=== PATIENT | male | born 1970 | race African-American/Black ===

== ENCOUNTER 2020-10-12 04:09 | Emergency (ER) | payer SELFPAY ==
--- OUTSIDE RECORDS SUMMARY | 2020-10-12 04:12 | XMS REPORT | Continuity of Care Document ---
:[address] [facility] t Address [address] [place] [address] Care Team Providers Name Role Phone Asked, Pcp Primary Care Physician Unavailable Prabhjot CARSON, S Attending Clinician Problems This patient has no known problems. Allergies, Adverse Reactions, Alerts This patient has no known allergies or adverse reactions. Social History Social Habit Start Date Stop Date Quantity Comments Source Tobacco use and 2018-03-25 2018-03-25 Never used Carl Marquez ethodist exposure 00:00:00 00:00:00 Alcohol intake 2018-03-25 2018-03-25 Current drinker Kariet on Jain 00:00:00 00:00:00 of alcohol (finding) Alcohol Comment 2018-03-25 2018-03-25 social Henry Alma ethodist 00:00:00 00:00:00 [birth year] At [birth year] Carl Marquez ethodist 00:00:00 00:00:00 Smoking Status Start Date Stop Date Source Never smoker [place] Method[facility] t Medications This patient has no known medications. Procedures This patient has no known procedures. Plan of Care Planned Activity Planned Date Details Comments Source Future Scheduled 2021-01-27 INFLUENZA VACCINE Shen n Jain Test 00:00:00 [code = INFLUENZA VACCINE] Future Scheduled 1990 Hepatitis C Carl Cevallos hodist Test 00:00:00 screening (procedure) [code = 728171280] Future Scheduled 1988 COVID-19 VACCINE (1) Iván sheikh Jain Test 00:00:00 [code = COVID-19 VACCINE (1)] Encounters Start End Encounter Admission Attending Care Care Encounter Source Date/Time Date/Time Type Type Clinicians Facility Department ID 2020-09-29 2020-09-29 Emergency [facility] [id number] 03:20:00 04:38:00 Marlin Manrique [id number] [place] [id number] [place] [id number] Results This patient has no known results.
[2020-10-12] MEDS ORDERED: HYDROCODONE/APAP 5/325 MG TAB ONE (05:07)
[2020-10-12 05:55] LABS: SARS-COV-2 RT PCR POSITIVE (NEGATIVE)
--- NOTE | 2020-10-12 06:40 | EDPHYS ---
Physician Documentation [facility] Name: Kel Tobar Age: 50 yrs Sex: Male : 1970 Arrival Date: 10/12/2020 Time: 04:10 Bed 6 Private MD: ED Physician Jean-Paul Gallardo HPI: 10/12 06:35 This 50 yrs old Black Male presents to ER via Ambulatory with complaints of Fever, Sore rn Throat. 06:35 The patient reports fever, not measured (subjective). Onset: The symptoms/episode rn began/occurred yesterday. Modifying factors: there are no obvious modifying factors. Associated signs and symptoms: Pertinent positives: chills, earache. Associated signs and symptoms: Pertinent negatives: chest pain, skin rash, shortness of breath. Severity of symptoms: At their worst the symptoms were mild in the emergency department the symptoms are unchanged. The patient has not experienced similar symptoms in the past. The patient has not recently seen a physician. Historical: - Allergies: 04:12 No Known Allergies; jb4 - Home Meds: 04:12 Lisinopril Oral [Active]; amlodipine oral [Active]; jb4 - PMHx: 04:12 Hypertension; blood clots; Hernia; jb4 - PSHx: 04:12 Hernia repair; jb4 - Immunization history:: Adult Immunizations up to date. - Social history:: Smoking status: Patient denies any tobacco usage or history of. Patient uses alcohol, occasionally. Patient/guardian denies using street drugs. - Family history:: not pertinent. - Hospitalizations: : No recent hospitalization is reported. ROS: 06:35 Constitutional: + fever and chills Eyes: Negative for injury, pain, redness, and rn lvn, Neck: Negative for injury, pain, and swelling, Cardiovascular: Negative for chest pain, palpitations, and edema, Respiratory: Negative for shortness of breath, wheezing, and pleuritic chest pain, Abdomen/GI: Negative for abdominal pain, nausea, vomiting, diarrhea, and constipation, MS/Extremity: Negative for injury and deformity, Skin: Negative for injury, rash, and discoloration, Neuro: Negative for headache, weakness, numbness, tingling, and seizure. Exam: 06:35 Constitutional: This is a well developed, well nourished patient who is awake, alert, rn and in no acute distress. Head/Face: Normocephalic, atraumatic. ENT: Mild pharyngeal erythema, no stridor, no swelling Neck: Trachea midline, no thyromegaly or masses palpated, and no cervical lymphadenopathy. Supple, full range of motion without nuchal rigidity, or vertebral point tenderness. No Meningismus. Cardiovascular: Regular rate and rhythm. No pulse deficits. Respiratory: Speaking full sentences, on phone. No increased work of breathing, no retractions or nasal flaring. Abdomen/GI: Soft, non-tender Skin: Warm, dry MS/ Extremity: Pulses equal, no cyanosis. Neurovascular intact. Full, normal range of motion. Equal circumference. Neuro: Awake and alert, GCS 15 Vital Signs: 04:12 BP 187 / 98; Pulse 97; Pulse Ox 99% on R/A; Weight 108.86 kg (R); Height 6 ft. 0 in. jb4 (182.88 cm); Pain 6/10; 04:21 Resp 18; Temp 98.1; mg2 05:00 BP 175 / 95; Pulse 90; Resp 18; Pulse Ox 98% on R/A; mg2 05:00 BP 151 / 64; Pulse 95; Resp 18; Pulse Ox 96% on R/A; mg2 06:30 BP 154 / 88; Pulse 93; Resp 16; Pulse Ox 98% on R/A; jb4 04:12 Body Mass Index 32.55 (108.86 kg, 182.88 cm) jb4 MDM: 04:19 Patient medically screened. rn 06:35 Differential diagnosis: viral Infection, bacterial infection, URI. Data reviewed: vital rn signs, nurses notes, lab test result(s), and as a result, I will discharge patient. Counseling: I had a detailed discussion with the patient and/or guardian regarding: the historical points, exam findings, and any diagnostic results supporting the discharge/admit diagnosis, the need for outpatient follow up, to return to the emergency department if symptoms worsen or persist or if there are any questions or concerns that arise at home. Response to treatment: the patient's symptoms have mildly improved after treatment, and as a result, I will discharge patient. Special discussion: I discussed with the patient/guardian in detail that at this point there is no indication for admission to the hospital. It is understood, however, that if the symptoms persist or worsen the patient needs to return immediately for re-evaluation. 10/12 04:32 Order name: Strep rn 10/12 04:32 Order name: Flu rn 10/12 04:32 Order name: COVID-19 : Document "Date of Symptom Onset" if Symptomatic. rn 10/12 04:59 Order name: CORONAVIRUS EDMS 10/12 04:59 Order name: Influenza Screen (A EDMS 10/12 05:32 Order name: Group A Streptococcus Rapid Sc; Complete Time: 06:00 EDMS 10/12 05:55 Order name: COVID-19/FLU A+B; Complete Time: 06:00 EDMS Administered Medications: 04:52 Drug: [place] (HYDROcodone-acetaminophen) 5 mg-325 mg 1 tabs Route: PO; jb4 06:22 Follow up: Response: No adverse reaction mg2 Disposition: 10/12/20 06:39 Discharged to Home. Impression: Fever, unspecified, Coronavirus infection, unspecified. - Condition is Stable. - Discharge Instructions: Viral Respiratory Infection, Qmat-Ak-Meos, COVID-19. - Prescriptions for Zithromax Z- Rich 250 mg Oral Tablet - take 1 tablet by ORAL route as directed for 5 days Day 1 - take two (2) tablets one time. Day 2, 3, 4 , 5 take one (1) tablet once daily.; 6 tablet. Prednisone 20 mg Oral Tablet - take 1 tablet by ORAL route as directed for 14 days Take 2 tablets by mouth daily for 7 days, followed by 1 tablet by mouth daily for 7 days, total of 14 days.; 21 tablet. - Medication Reconciliation Form, Thank You Letter, Antibiotic Education, Prescription Opioid Use, Work release form form. - Follow up: Private Physician; When: As needed; Reason: Recheck today's complaints, Re-evaluation by your physician. - Problem is new. - Symptoms have improved. Signatures: Dispatcher [employer] EDWY Jean-Paul Gallardo MD MD rn Bryson, James, RN RN jb4 Corby Hauser RN mg2 Corrections: (The following items were deleted from the chart) 06:44 06:39 10/12/2020 06:39 Discharged to Home. Impression: Fever, unspecified; Coronavirus jb4 infection, unspecified. Condition is Stable. Forms are Work release form, Medication Reconciliation Form, Thank You Letter, Antibiotic Education, Prescription Opioid Use. Follow up: Private Physician; When: As needed; Reason: Recheck today's complaints, Re-evaluation by your physician. Problem is new. Symptoms have improved. rn
--- NOTE | 2020-10-12 06:40 | ER ---
Nurse's Notes [facility] Name: Kel Tobar Age: 50 yrs Sex: Male : 1970 Arrival Date: 10/12/2020 Time: 04:10 Bed 6 Private MD: Diagnosis: Fever, unspecified;Coronavirus infection, unspecified Presentation: 10/12 04:12 Chief complaint: Patient states: I am just feeling bad. I had an ear infection 2 weeks jb4 ago that I was on antibiotics for. Yesterday I was coughing up mucus and am having a soar throat. 04:12 Coronavirus screen: Client denies travel out of the [place] in the last 14 days. jb4 congestion, cough unrelated to allergies, fever, Client presents with at least one sign or symptom that may indicate coronavirus-19. Standard/surgical mask placed on the client. Ebola Screen: No symptoms or risks identified at this time. Initial Sepsis Screen: Does the patient meet any 2 criteria? No. Patient's initial sepsis screen is negative. Does the patient have a suspected source of infection? No. Patient's initial sepsis screen is negative. Risk Assessment: Do you want to hurt yourself or someone else? Patient reports no desire to harm self or others. Onset of symptoms was October 11, 2020. Transition of care: patient was not received from another setting of care. 04:12 Method Of Arrival: Ambulatory jb4 04:12 Acuity: CHRISTINA 4 jb4 Historical: - Allergies: 04:12 No Known Allergies; jb4 - Home Meds: 04:12 Lisinopril Oral [Active]; amlodipine oral [Active]; jb4 - PMHx: 04:12 Hypertension; blood clots; Hernia; jb4 - PSHx: 04:12 Hernia repair; jb4 - Immunization history:: Adult Immunizations up to date. - Social history:: Smoking status: Patient denies any tobacco usage or history of. Patient uses alcohol, occasionally. Patient/guardian denies using street drugs. - Family history:: not pertinent. - Hospitalizations: : No recent hospitalization is reported. Screenin:12 Abuse screen: Denies threats or abuse. Nutritional screening: No deficits noted. jb4 Tuberculosis screening: No symptoms or risk factors identified. Fall Risk None identified. Assessment: 04:12 General: Appears in no apparent distress. uncomfortable, Behavior is calm, cooperative, jb4 appropriate for age. Pain: Complains of pain in throat Pain does not radiate. Pain currently is 6 out of 10 on a pain scale. Quality of pain is described as burning, aching, Pain began 1 day ago. Neuro: Level of Consciousness is awake, alert, obeys commands, Oriented to person, place, time, situation. Cardiovascular: Patient's skin is warm and dry. Respiratory: Airway is patent Respiratory effort is even, unlabored, Respiratory pattern is regular, symmetrical. GI: Reports diarrhea. : No signs and/or symptoms were reported regarding the genitourinary system. EENT: Throat is clear is reddened with gag reflex present. Derm: Skin is intact, Skin is dry, Skin is normal, Skin temperature is warm. Musculoskeletal: Circulation, motion, and sensation intact. Range of motion: intact in all extremities. 05:25 Reassessment: PT is resting in bed with eyes closed, respirations are even and jb4 unlabored with no s/s of pain or distress noted. 06:30 Reassessment: Patient appears in no apparent distress at this time. Patient and/or jb4 family updated on plan of care and expected duration. Pain level reassessed. Patient is alert, oriented x 3, equal unlabored respirations, skin warm/dry/pink. Pt informed of Covid-19 (+) result. Vital Signs: 04:12 BP 187 / 98; Pulse 97; Pulse Ox 99% on R/A; Weight 108.86 kg (R); Height 6 ft. 0 in. jb4 (182.88 cm); Pain 6/10; 04:21 Resp 18; Temp 98.1; mg2 05:00 BP 175 / 95; Pulse 90; Resp 18; Pulse Ox 98% on R/A; mg2 05:00 BP 151 / 64; Pulse 95; Resp 18; Pulse Ox 96% on R/A; mg2 06:30 BP 154 / 88; Pulse 93; Resp 16; Pulse Ox 98% on R/A; jb4 04:12 Body Mass Index 32.55 (108.86 kg, 182.88 cm) jb4 ED Course: 04:10 Patient arrived in ED. cl3 04:12 Britton Jin, RN is Primary Nurse. jb4 04:12 Patient has correct armband on for positive identification. Bed in low position. Call jb4 light in reach. Side rails up X 1. Pulse ox on. NIBP on. 04:19 Jean-Paul Gallardo MD is Attending Physician. rn 04:36 Triage completed. jb4 04:53 Arm band placed on right wrist. jb4 05:50 Influenza Screen (A Sent. jb4 05:50 CORONAVIRUS Sent. jb4 05:50 Flu Sent. jb4 05:50 Strep Sent. jb4 06:23 No provider procedures requiring assistance completed. Patient did not have IV access mg2 during this emergency room visit. Administered Medications: 04:52 Drug: [place] (HYDROcodone-acetaminophen) 5 mg-325 mg 1 tabs Route: PO; jb4 06:22 Follow up: Response: No adverse reaction mg2 Outcome: 06:39 Discharge ordered by MD. rn 06:41 Discharged to home ambulatory. jb4 06:41 Condition: stable 06:41 Discharge instructions given to patient, Instructed on discharge instructions, follow up and referral plans. medication usage, Demonstrated understanding of instructions, follow-up care, medications, Prescriptions given X 2. 06:44 Patient left the ED. jb4 Signatures: Jean-Paul Gallardo MD MD rn Bryson, James RN RN jb4 Corby Hauser RN RN mg2 Corrie Iverson cl3 Corrections: (The following items were deleted from the chart) 06:28 06:23 BP 175 / 95; Pulse 90bpm; Resp 18bpm; Pulse Ox 98% RA; mg2 mg2 06:43 06:41 Discharge instructions given to patient, Instructed on discharge instructions, jb4 follow up and referral plans. Demonstrated understanding of instructions, follow-up care, jb4
[2020-10-12 06:49] VITALS: TEMP 98.1
[2020-10-12 06:52] VITALS: BP 154/88; O2SAT 98
== END 2020-10-12 06:44 | disposition home or self-care (01) ==
LOC: ER 04:09
DX: U07.1 COVID-19 (principal); I10 Essential (primary) hypertension
CPT/HCPCS: 0240U; 87070; 87081; 99284

== ENCOUNTER 2020-10-19 16:17 | Inpatient (IN) | payer SELFPAY ==
--- OUTSIDE RECORDS SUMMARY | 2020-10-19 16:20 | XMS REPORT | Continuity of Care Document ---
:1970 Author Organization [facility] t Address [address] [place] [address] Care Team Providers Name Role Phone Asked, Pcp Primary Care Physician Unavailable Prabhjot CARSON S Attending Clinician Problems This patient has no known problems. Allergies, Adverse Reactions, Alerts This patient has no known allergies or adverse reactions. Social History Social Habit Start Date Stop Date Quantity Comments Source Tobacco use and 2018-03-25 2018-03-25 Never used Carl Marquez ethodist exposure 00:00:00 00:00:00 Alcohol intake 2018-03-25 2018-03-25 Current drinker Irene on Yarsanism 00:00:00 00:00:00 of alcohol (finding) Alcohol Comment 2018-03-25 2018-03-25 social [place] Alma ethodist 00:00:00 00:00:00 Sex Ass[birth year] At [birth year] [place] M ethodist 00:00:00 00:00:00 Smoking Status Start Date Stop Date Source Never smoker [place] Methodis t Medications This patient has no known medications. Procedures This patient has no known procedures. Plan of Care Planned Activity Planned Date Details Comments Source Future Scheduled 2021-01-27 INFLUENZA VACCINE Shen vogt Yarsanism Test 00:00:00 [code = INFLUENZA VACCINE] Future Scheduled 1990 Hepatitis C Carl Cevallos hodist Test 00:00:00 screening (procedure) [code = 068922985] Future Scheduled 1988 COVID-19 VACCINE (1) Iván kori Yarsanism Test 00:00:00 [code = COVID-19 VACCINE (1)] Encounters Start End Encounter Admission Attending Care Care Encounter Source Date/Time Date/Time Type Type Clinicians Facility Department ID 2020-09-29 2020-09-29 Emergency [facility] [id number] 03:20:00 04:38:00 Marlin Manrique [id number] [place] [id number] [place] [address] [id number] Results This patient has no known results.
[2020-10-19 18:34] LABS: Absolute Lymphocytes (CBC) 0.5 K/uL (0.7-4.9); Basophils % 0.7 % (0-1.3); Hematocrit 38.8 % (39.6-49.0); MPV 8.9 fL (7.6-11.3); RBC Red Blood Cell Count 4.34 M/uL (4.33-5.43)
[2020-10-19 18:41] LABS: Protime INR 1.16
[2020-10-19] MEDS ORDERED: LEVALBUTEROL 1.25 MG/3 ML NEB ONE (18:47)
[2020-10-19] MEDS ORDERED: dexAMETHasone 10 MG/ML VIAL ONE (18:47)
[2020-10-19] MEDS ORDERED: MAGNESIUM SULFATE 1 gm IVPB 1 GM/100 ML BAG IV ONE (18:48)
[2020-10-19 19:05] LABS: Alkaline Phosphatase 95 U/L (45-117); BUN Blood Urea Nitrogen 27 mg/dL (7-18); Bicarbonate 25 mmol/L (21-32); Bilirubin Direct 0.3 mg/dL (0-0.2); Bilirubin Total 0.6 mg/dL (0.2-1.0); Glucose Level 127 mg/dL (74-106); NT PRO-BNP 167 pg/mL (<125); Protein, Total 8.4 g/dL (6.4-8.2); Sodium Level 135 mmol/L (136-145); Troponin (Emerg Dept Use Only) < 0.02 ng/mL (0.0-0.045)
[2020-10-19 19:09] LABS: AST/SGOT 352 U/L (15-37); Magnesium 3.2 mg/dL (1.8-2.4); Potassium 4.7 mmol/L (3.5-5.1)
[2020-10-19 19:10] LABS: ALT/SGPT 530 U/L (12-78)
[2020-10-19] MEDS ORDERED: MORPHINE 4 MG/ML SYR ONE (19:11)
[2020-10-19] MEDS ORDERED: ONDANSETRON 4 MG/2 ML VIAL ONE (19:11)
--- NOTE | 2020-10-19 19:56 | RAD REPORT ---
EXAM DESCRIPTION: RAD - Chest Single View - 10/19/2020 6:35 pm CLINICAL HISTORY: shortness of breath Chest pain. COMPARISON: No comparisons FINDINGS: Portable technique limits examination quality. Moderate bilateral interstitial lung opacities are present likely related to viral pneumonia. The hea rt is normal in size. No displaced fractures.
--- NOTE | 2020-10-19 20:50 | EDPHYS ---
Physician Documentation [facility] Name: Kel Tobar Age: 50 yrs Sex: Male : 1970 Arrival Date: 10/19/2020 Time: 16:21 Bed 8 Private MD: RAOUL Physician Jax Cortez HPI: 10/19 18:00 This 50 yrs old Black Male presents to ER via Ambulatory with complaints of COVID+. jmm 18:00 The patient has shortness of breath at rest. Onset: The symptoms/episode began/occurred jmm gradually, 10 day(s) ago. Duration: The symptoms are continuous, and are steadily getting worse. The patient's shortness of breath is aggravated by nothing, is alleviated by nothing. Associated signs and symptoms: Pertinent positives: earache, shortness of breath, Pertinent negatives:. Modifying factors: The patient symptoms are alleviated by nothing, the patient symptoms are aggravated by nothing. Patient developed symptoms of covid 19 approx 10 days ago. . Historical: - Allergies: 16:29 No Known Allergies; hb - PMHx: 16:29 blood clots; Hernia; Hypertension; hb - PSHx: 16:29 Hernia repair; hb - Immunization history:: Adult Immunizations up to date. - Social history:: Smoking status: Patient denies any tobacco usage or history of. ROS: 18:00 Constitutional: Positive for body aches, chills. jmm 18:00 Respiratory: Positive for cough, shortness of breath. 18:00 All other systems are negative. Exam: 18:00 Constitutional: This is a well developed, well nourished patient who is awake, alert, jmm and in no acute distress. Head/Face: atraumatic. Eyes: EOMI, no conjunctival erythema appreciated ENT: Moist Mucus Membranes Neck: Trachea midline, Supple Chest/axilla: Normal chest wall appearance and motion. Cardiovascular: Regular rate and rhythm. No edema appreciated Respiratory: Normal respirations, no respiratory distress appreciated Abdomen/GI: Non distended, soft Back: Normal ROM Skin: General appearance color normal MS/ Extremity: Moves all extremities, no obvious deformities appreciated, no edema noted to the lower extremities Neuro: Awake and alert, normal gait Psych: Behavior is normal, Mood is normal, Patient is cooperative and pleasant Vital Signs: 16:25 BP 131 / 84; Pulse 89; Resp 28; Temp 98; Pulse Ox 87% on R/A; Pain 8/10; hb 18:49 Pulse 78; Resp 26; Pulse Ox 96% ; ll1 19:30 BP 150 / 90; Pulse 89; Resp 24; Pulse Ox 92% on 3 lpm NC; jb4 20:30 BP 140 / 79; Pulse 77; Resp 26; Pulse Ox 94% on 3 lpm NC; jb4 21:45 BP 151 / 88; Pulse 81; Resp 19; Pulse Ox 96% on 3 lpm NC; jb4 MDM: 18:[address] [facility] 20:48 Data reviewed: vital signs, nurses notes. Counseling: I had a detailed discussion with [facility] the patient and/or guardian regarding: the historical points, exam findings, and any diagnostic results supporting the discharge/admit diagnosis, lab results, radiology results, the need for further work-up and treatment in the hospital. ED course: I discussed the patient with Darnell Grossman whom accepted the patient for admission. . 10/19 18:01 Order name: Basic Metabolic Panel [facility] 10/19 18:01 Order name: CBC with Diff [facility] 10/19 18:01 Order name: LFT's; Complete Time: 19:11 [facility] 10/19 18:01 Order name: Magnesium; Complete Time: 19:11 [facility] 10/19 18:01 Order name: NT PRO-BNP; Complete Time: 19:11 [facility] 10/19 18:01 Order name: PT-INR; Complete Time: 18:43 [facility] 10/19 18:01 Order name: Troponin (emerg Dept Use Only); Complete Time: 19:11 [facility] 10/19 18:01 Order name: Basic Metabolic Panel; Complete Time: 19:11 [facility] 10/19 18:01 Order name: CBC with Automated Diff; Complete Time: 18:39 [facility] 10/19 18:02 Order name: Procalcitonin; Complete Time: 19:20 [facility] 10/19 18:02 Order name: Lactate; Complete Time: 18:47 [facility] 10/19 18:02 Order name: Blood Culture Adult (2) [facility] 10/19 19:21 Order name: Ferritin; Complete Time: 20:14 [facility] 10/19 19:21 Order name: CRP [facility] 10/19 18:01 Order name: XRAY Chest (1 view); Complete Time: 20:14 [facility] 10/19 18:01 Order name: EKG; Complete Time: 18:02 [facility] 10/19 19:22 Order name: C-Reactive Protein; Complete Time: 20:14 [facility] 10/19 20:24 Order name: D-Dimer [facility] 10/19 20:24 Order name: D-Dimer; Complete Time: 21:08 [facility] 10/19 20:46 Order name: US Abdomen Limited 10/19 21:10 Order name: Acetaminophen [facility] 10/19 21:11 Order name: Acetaminophen Level; Complete Time: 22:11 [facility] 10/19 21:17 Order name: CONS Physician Consult [facility] 10/19 21:41 Order name: US; Complete Time: 21:42 [facility] 10/19 18:01 Order name: Cardiac monitoring; Complete Time: 19:03 [facility] 10/19 18:01 Order name: EKG - Nurse/Tech; Complete Time: 19:03 [facility] 10/19 18:01 Order name: IV Saline Lock; Complete Time: 18:25 [facility] 10/19 18:01 Order name: Labs collected and sent; Complete Time: 18:25 [facility] 10/19 18:01 Order name: O2 Per Protocol; Complete Time: 18:25 [facility] 10/19 18:01 Order name: O2 Sat Monitoring; Complete Time: 18:25 [facility] Administered Medications: 18:39 Drug: Magnesium Sulfate 1 grams Route: IVPB; Infused Over: 1 hrs; Site: right ll1 antecubital; 21:40 Follow up: Response: No adverse reaction; IV Status: Completed infusion; IV Intake: mg2 100ml 18:40 Drug: Decadron - Dexamethasone 10 mg Route: IVP; Site: right antecubital; 1 21:40 Follow up: Response: No adverse reaction mg2 18:40 Drug: Xopenex (levalbuterol) (3) 1.25 mg Route: Inhalation; 1 19:02 Follow up: Response: No adverse reaction; RASS: Alert and Calm (0) 1 18:55 Drug: morphine 4 mg Route: IVP; Site: right antecubital; 1 21:40 Follow up: Response: No adverse reaction mg2 18:55 Drug: Zofran (Ondansetron) 4 mg Route: IVP; Site: right antecubital; ll1 21:40 Follow up: Response: No adverse reaction mg2 21:37 Drug: NS 0.9% 1000 ml Route: IV; Rate: 1 bolus; Site: right antecubital; mg2 Disposition: 10/19/20 20:49 Hospitalization ordered by Pradeep Mckeon for Observation. Preliminary diagnosis are Coronavirus infection, unspecified, Hypoxia, Dehydration. - Bed requested for Telemetry/MedSurg (observation). - Status is Observation. mg2 - Condition is Stable. - Problem is new. - Symptoms are unchanged. Addendum: 10/21/2020 08:11 Co-signature as Attending Physician, Jax Cortez MD I agree with the assessment and c birch plan of care. Signatures: Dispatcher [employer] EDMS Rachna Bryan RN RN mw Anderson, Corey, MD MD cha Mickail, Joel, PA PA Isaías Lamb PA PA jr8 Laura Rea RN RN Corby Hauser RN RN [facility] Alethea Iverson RN RN ll1 Corrections: (The following items were deleted from the chart) 10/19 21:40 20:49 Hospitalization Ordered by Pradeep Mckeon MD for Observation. Preliminary mw diagnosis is Coronavirus infection, unspecified; Hypoxia; Dehydration. Bed requested for Telemetry/MedSurg (observation). Status is Observation. Condition is Stable. Problem is new. Symptoms are unchanged. [facility] 22:23 21:40 10/19/2020 20:49 Hospitalization Ordered by Pradeep Mckeon MD for Observation. mg2 Preliminary diagnosis is Coronavirus infection, unspecified; Hypoxia; Dehydration. Bed requested for Telemetry/MedSurg (observation). Status is Observation. Condition is Stable. Problem is new. Symptoms are unchanged. mw
--- NOTE | 2020-10-19 20:50 | ER ---
Nurse's Notes [facility] Name: Kel Tobar Age: 50 yrs Sex: Male : 1970 Arrival Date: 10/19/2020 Time: 16:21 Bed 8 Private MD: Diagnosis: Coronavirus infection, unspecified;Hypoxia;Dehydration Presentation: 10/19 16:25 Chief complaint: Tested COVID + 8 days ago, feeling significantly worse over last few hb days, SOB, productive cough, right ear pain, and malaise. Coronavirus screen: Client presents with at least one sign or symptom that may indicate coronavirus-19. Standard/surgical mask placed on the client. Provider contacted for isolation considerations. Client reports previous positive COVID test result. Ebola Screen: No symptoms or risks identified at this time. Initial Sepsis Screen: Does the patient meet any 2 criteria? RR > 20 per min. No. Patient's initial sepsis screen is negative. Does the patient have a suspected source of infection?. Risk Assessment: Do you want to hurt yourself or someone else? Patient reports no desire to harm self or others. Onset of symptoms was October 12, 2020. 16:25 Method Of Arrival: Ambulatory hb 16:25 Acuity: CHRISTINA 2 hb Historical: - Allergies: 16:29 No Known Allergies; hb - PMHx: 16:29 blood clots; Hernia; Hypertension; hb - PSHx: 16:29 Hernia repair; hb - Immunization history:: Adult Immunizations up to date. - Social history:: Smoking status: Patient denies any tobacco usage or history of. Screenin:41 Abuse screen: Denies threats or abuse. Nutritional screening: No deficits noted. ll1 Tuberculosis screening: No symptoms or risk factors identified. Fall Risk IV access (20 points). Total Portillo Fall Scale indicates No Risk (0-24 pts). Assessment: 18:10 General: Appears ill, Behavior is calm, cooperative, appropriate for age. Pain: ll1 Complains of pain in body Quality of pain is described as aching. Neuro: No deficits noted. Cardiovascular: No deficits noted. Respiratory: Reports shortness of breath cough that is Airway is patent Trachea midline Respiratory effort is even, labored, Respiratory pattern is symmetrical, tachypnea Breath sounds are diminished bilaterally. the patient has mild shortness of breath. Musculoskeletal: Circulation, motion, and sensation intact. Capillary refill < 3 seconds, Range of motion: intact in all extremities, Reports pain in body. 19:00 Reassessment: Patient appears in no apparent distress at this time. Patient and/or jb4 family updated on plan of care and expected duration. Pain level reassessed. Patient is alert, oriented x 3, equal unlabored respirations, skin warm/dry/pink. 19:35 Reassessment: Provider okayed pt to have ice water. Pt given ice water per request. jb4 20:30 Reassessment: Patient appears in no apparent distress at this time. Patient and/or jb4 family updated on plan of care and expected duration. Pain level reassessed. Patient is alert, oriented x 3, equal unlabored respirations, skin warm/dry/pink. 20:55 Reassessment: hospitalist at bedside. mg2 21:47 Reassessment: Patient appears in no apparent distress at this time. Patient and/or jb4 family updated on plan of care and expected duration. Pain level reassessed. Patient is alert, oriented x 3, equal unlabored respirations, skin warm/dry/pink. Vital Signs: 16:25 BP 131 / 84; Pulse 89; Resp 28; Temp 98; Pulse Ox 87% on R/A; Pain 8/10; hb 18:49 Pulse 78; Resp 26; Pulse Ox 96% ; ll1 19:30 BP 150 / 90; Pulse 89; Resp 24; Pulse Ox 92% on 3 lpm NC; jb4 20:30 BP 140 / 79; Pulse 77; Resp 26; Pulse Ox 94% on 3 lpm NC; jb4 21:45 BP 151 / 88; Pulse 81; Resp 19; Pulse Ox 96% on 3 lpm NC; jb4 ED Course: 16:21 Patient arrived in ED. mr 16:28 Triage completed. hb 17:50 Jerad Tracy PA is PHCP. jmm 17:50 Jax Cortez MD is Attending Physician. jmm 17:50 Arm band placed on Patient placed in an exam room, on a stretcher. ll1 18:15 Inserted saline lock: 20 gauge in right antecubital area, using aseptic technique. ll1 Blood collected. 18:33 XRAY Chest (1 view) In Process Unspecified. EDMS 18:39 Alethea Iverson, RN is Primary Nurse. ll1 18:41 Patient has correct armband on for positive identification. Bed in low position. Call ll1 light in reach. Side rails up X 1. Pulse ox on. NIBP on. 19:20 Primary Nurse role handed off by Alethea Iverson RN jb4 19:20 Britton Jin, RN is Primary Nurse. jb4 20:49 Pradeep Mckeon MD is Hospitalizing Provider. [facility] 22:22 No provider procedures requiring assistance completed. Patient admitted, IV remains in mg2 place. Administered Medications: 18:39 Drug: Magnesium Sulfate 1 grams Route: IVPB; Infused Over: 1 hrs; Site: right ll1 antecubital; 21:40 Follow up: Response: No adverse reaction; IV Status: Completed infusion; IV Intake: mg2 100ml 18:40 Drug: Decadron - Dexamethasone 10 mg Route: IVP; Site: right antecubital; ll1 21:40 Follow up: Response: No adverse reaction mg2 18:40 Drug: Xopenex (levalbuterol) (3) 1.25 mg Route: Inhalation; ll1 19:02 Follow up: Response: No adverse reaction; RASS: Alert and Calm (0) ll1 18:55 Drug: morphine 4 mg Route: IVP; Site: right antecubital; ll1 21:40 Follow up: Response: No adverse reaction mg2 18:55 Drug: Zofran (Ondansetron) 4 mg Route: IVP; Site: right antecubital; ll1 21:40 Follow up: Response: No adverse reaction mg2 21:37 Drug: NS 0.9% 1000 ml Route: IV; Rate: 1 bolus; Site: right antecubital; mg2 Intake: 21:40 IV: 100ml; Total: 100ml. mg2 Outcome: 20:49 Decision to Hospitalize by Provider. jmm 22:22 Admitted to Tele accompanied by tech, via wheelchair, room 415, with oxygen, with chart.mg2 22:22 Condition: good 22:22 Instructed on the need for admit, Demonstrated understanding of instructions. 22:23 Patient left the ED. mg2 Signatures: Dispatcher [employer] EDMS Jerad Tracy PA PA [facility] Sun [place] mr Laura Rea RN RN Britton Jin RN RN [facility] Corby Hauser RN RN [facility] Kishor, Lynsay, RN RN ll1 Corrections: (The following items were deleted from the chart) 16:29 16:25 BP 131 / 84; Pulse 89bpm; Resp 24bpm; Pulse Ox 87% RA; Temp 98F; Pain 8/10; hb hb
--- NOTE | 2020-10-19 21:40 | RAD REPORT ---
EXAM DESCRIPTION: US - Abdomen Exam Limited - 10/19/2020 9:27 pm CLINICAL HISTORY: evaluate liver/gallbladder Abdominal pain. COMPARISON: No comparisons FINDINGS: The gallbladder demonstrates questionable tiny gallstone. No large gallstones present. No pericholecystic fluid or gallbladder wall thickening. The common bile duct is normal measuring 4 mm. The liver demonstrates no findings of intrahepatic biliary dilatation. IMPRESSION: Questionable tiny gallstone. Otherwise negative study.
[2020-10-19] MEDS ORDERED: NA CHLORIDE 0.9% 1,000 ML ONE (21:56)
--- NOTE | 2020-10-19 22:50 | P.HP ---
Certification for Inpatient Patient admitted to: Inpatient With expected LOS: >2 Midnights Patient will require the following post-hospital care: None Practitioner: I am a practitioner with admitting privileges, knowledge of patient current condition, hospital course, and medical plan of care. Services: Services provided to patient in accordance with Admission requirements found in Title 42 Section 412.3 of the Code of Federal Regulations <Darnell Grossman Kathi - Last Filed: 10/20/20 05:00> Patient History Date of Service: 10/20/20 Primary Care Provider: none Reason for admission: covid pneumonia History of Present Illness: Mr. Tobar is a 50 yo M with hypertension and h/o DVT here after COVID+ diagno sis on 10/12, now with increased SOB, cough and fatigue for the past 3 days. O2 sats 86% on room air, now improved on nasal cannula. He reports chills, night sweats, pleuritic pain, CEDEÑO, nausea and diarrhea. He recently took azithromycin and amoxicillin for an ear infection. He says he has been taking acetaminophen syrup every 2 hours for symptom relieve. AST 352. ALT 530. D dimer 1457. Procal 0.21. CRP 152. Ferritin 970. BUN 27. Cr 1.54. GFR 59. Glu 127. CXR - Moderate bilateral interstitial lung opacities are present likely related to viral pneumonia. The heart is normal in size. No displaced fractures. Liver US - Questionable tiny gallstone. Otherwise negative study. - Past Medical/Surgical History -: HTN -: DVT in college -: hernia repair Psychosocial/ Personal History: - Social History Smoking Status: Never smoker Alcohol use: Yes CD- Drugs: No Caffeine use: Yes Place of Residence: Home <Darnell Grossman - Last Filed: 10/20/20 05:00> Date of Service: 10/19/20 <Ambrosio Sepulveda - Last Filed: 10/21/20 08:16> Allergies No Known Allergies Allergy (Verified 10/19/20 22:51) Home Medications: Amlodipine [Norvasc*] DAILY 10/20/20 Butalb/Acetaminophen/Caffeine [Utjgtl-Ytzzjhin-Dpvt 50-300-40] 1 each PO Q4H PRN 10/20/20 Lisinopril [Zestril] 10 mg PO DAILY 10/20/20 predniSONE [Prednisone] 20 mg PO 10/20/20 Review of Systems General: Fever, Chills, Sweats, Malaise, As per HPI Eyes: Unremarkable ENT: Unremarkable Respiratory: Cough, Shortness of Breath, SOB with Excertion, Pleuritic Pain, Sputum, As per HPI Cardiovascular: Unremarkable Gastrointestinal: Nausea, Vomiting, Diarrhea, As per HPI Genitourinary: Unremarkable Musculoskeletal: Unremarkable Integumentary: Unremarkable Neurological: Unremarkable Lymphatics: Unremarkable <Darnell Grossman - Last Filed: 10/20/20 05:00> Physical Examination - Vital Signs Temperature: 98 F Blood Pressure: 151/88 Pulse: 81 Respirations: 19 - Physical Exam General: Alert, In no apparent distress, Oriented x3, Cooperative HEENT: Atraumatic, Normocephalic, PERRLA, Mucous membr. moist/pink, EOMI, Scl erae nonicteric Neck: Supple, 2+ carotid pulse no bruit, JVD not distended, No Thyromegaly, No LAD Respiratory: Diminished, Rhonchi/gurgles Cardiovascular: No edema, Normal pulses, Regular rate/rhythm, Normal S1 S2, No gallops, No rubs, No murmurs Capillary refill: <2 Seconds Gastrointestinal: Normal bowel sounds, Soft and benign, Non-distended, No ascites, No tenderness, No masses, No rebound, No guarding Musculoskeletal: No clubbing, No swelling, No contractures, No erythema, No tenderness, No warmth Integumentary: No rashes, No breakdown, No significant lesion, No tenderness/swelling, No erythema, No warmth, No cyanosis Neurological: Normal gait, Normal speech, Normal strength at 5/5 x4 extr, Normal tone, Sensation intact, Cranial nerves 3-12 intact, Normal affect Lymphatics: No axilla or inguinal lymphadenopathy - Studies Laboratory Data (last 24 hrs) 10/19/20 18:15: PT 13.4 H, INR 1.16 10/19/20 18:15: WBC 6.40, Hgb 12.9 L, Hct 38.8 L, Plt Count 293 10/19/20 18:15: Sodium 135 L, Potassium 4.7, BUN 27 H, Creatinine 1.54 H, Glucose 127 H, Magnesium 3.2 H, Total Bilirubin 0.6, AST 352 H*, ALT 530 H*, Alkaline Phosphatase 95 <Darnell Grossman S - Last Filed: 10/20/20 05:00> Assessment and Plan - Problems (Diagnosis) (1) Pneumonia due to COVID-19 virus Current Visit: Yes Status: Acute (2) Elevated d-dimer Current Visit: Yes Status: Acute (3) Transaminitis Current Visit: Yes Status: Acute (4) SHARON (acute kidney injury) Current Visit: Yes Status: Acute (5) Diarrhea Current Visit: Yes Status: Acute (6) Hypertension Current Visit: Yes Status: Acute - Plan pulmonology and respiratory therapy consulted, daily room air sats, sats for home O2 covid supplements, ivermectin, IV steroids patient's baseline renal function unknown, may have SHARON 2/2 COVID or dehydrat ion, given 1L bolus of NS in the ED, will recheck BMP in the AM. will not continue fluids for now to keep dry considering pneumonia. GI consulted for transaminitis, may be 2/2 COVID, patient endorses overuse of acetaminophen. he is asymptomatic, liver US wnl, tylenol level wnl, hepatitis panel pending. Diarrhea may be 2/2 COVID, but due to patient's recent amoxicillin use, cdiff culture pending continue home BP medications SHARON improved with fluid bolus in the ED. CTPE pending to rule out PE, eliquis 5mg BID until then. Transaminitis improved overnight as well. Will continue to m onitor. Discharge Plan: Home Plan to discharge in: 72 Hours - Advance Directives Does patient have a Living Will: No Does patient have a Durable POA for Healthcare: No - Code Status/Comfort Care Code Status Assessed: Yes (full code) Critical Care: No Time Spent Managing Pts Care (In Minutes): 70 <Darnell Grossman - Last Filed: 10/20/20 05:00> Date of Service: 10/20/20 Chart reviewed. Events of the last 24 hr noted. Patient remains hypoxic. Liver enzymes elevated. Inflammatory markers improving. Continue with current plan of care. Hold antivirals and continue with steroids. <Ambrosio Sepulveda - Last Filed: 10/21/20 08:16>
[2020-10-19] MEDS ORDERED: ONDANSETRON 4 MG/2 ML VIAL IV PRN (22:51)
[2020-10-19] MEDS ORDERED: MORPHINE 2 MG/ML SYR IV PRN (22:51)
[2020-10-19 22:56] VITALS: BMI 30.1
[2020-10-19] MEDS: MELATONIN 5 MG TABLET PO PRN (23:13)
[2020-10-20 00:56] LABS: Ferritin 821.3 ng/mL (26-388)
[2020-10-20] MEDS: ALBUTEROL 2.5 MG/3 ML NEB SOL NEB SCH ×4 (02:30→20:20)
[2020-10-20 04:03] LABS: Absolute Lymphocytes (CBC) 0.6 K/uL (0.7-4.9); Basophils % 0.2 % (0-1.3); Hematocrit 37.4 % (39.6-49.0); Lymphocytes % 8.6 % (15.3-44.8); RBC Red Blood Cell Count 4.16 M/uL (4.33-5.43)
[2020-10-20 04:26] LABS: Albumin 2.8 g/dL (3.4-5.0); Bilirubin Total 0.5 mg/dL (0.2-1.0); Magnesium 3.1 mg/dL (1.8-2.4); Phosphorus 3.4 mg/dL (2.5-4.9); Potassium 4.5 mmol/L (3.5-5.1); Protein, Total 7.4 g/dL (6.4-8.2)
[2020-10-20] MEDS: THIAMINE HCL 100 MG TABLET PO SCH (07:45)
[2020-10-20] MEDS: VITAMIN D 1000 UNIT TAB PO SCH (07:46)
[2020-10-20] MEDS: ASCORBIC ACID 500 MG TABLET PO SCH ×4 (07:46→20:21)
[2020-10-20] MEDS: ZINC SULFATE 220 MG CAP PO SCH (07:46)
[2020-10-20] MEDS: METHYLPREDNISOLONE 125 MG INJ IV SCH ×2 (07:47→20:22)
[2020-10-20] MEDS: FAMOTIDINE 20 MG TAB PO SCH ×2 (07:47→20:21)
[2020-10-20] MEDS: APIXABAN 5 MG TABLET PO SCH ×2 (07:47→20:21)
[2020-10-20] MEDS: lisinopriL 10 MG TAB PO SCH (07:51)
[2020-10-20] MEDS: AMLODIPINE 10 MG TAB PO SCH (07:51)
--- NOTE | 2020-10-20 07:56 | EKG ---
Test Date: 2020-10-19 Test Time: 18:59:44 [facility]: LML MEASUREMENT RESULTS: Intervals: Rate: 82 SC: 134 QRSD: 78 QT: 372 QTc: 434 [place]: P: 64 SC: 134 QRS: 52 T: 6 INTERPRETIVE STATEMENTS: Normal sinus rhythm Right atrial enlargement Borderline ECG No previous ECG available for comparison Electronically Signed On 10-20-20 07:56:11 CDT by Jamie Rush
[2020-10-20] MEDS ORDERED: APIXABAN 5 MG TABLET PO SCH (09:00)
[2020-10-20] MEDS: BENZONATATE 100 MG CAP PO PRN ×2 (09:26→20:21)
[2020-10-20] MEDS: IVERMECTIN 3 MG TABLET PO SCH (09:26)
[2020-10-20 17:15] LABS: Urine Appearance CLEAR (Clear); Urine Bilirubin NEGATIVE (Negative); Urine Blood NEGATIVE (Negative); Urine Color YELLOW (Yellow); Urine Glucose NEGATIVE (Negative); Urine Protein 1+ (Negative); Urine Specific Gravity >=1.030 (1.005-1.030); Urine Urobilinogen 0.2 mg/dL (0.2-1.0); Urine pH 5.5 (5.0-7.0)
[2020-10-20 17:39] LABS: Urine Microscopic Reflex ORDER UMIC
[2020-10-20 18:43] LABS: Urine Bacteria <20 /HPF (NONE SEEN); Urine RBC NONE SEEN /HPF (NONE SEEN)
--- NOTE | 2020-10-20 18:53 | RAD REPORT ---
EXAM DESCRIPTION: CT Angiography Chest With Intravenous Contrast CLINICAL HISTORY: The patient is 50 years old and is Male; covid pneumonia TECHNIQUE: Axial computed tomographic angiography images of the chest with intravenous contrast. S agittal and coronal reformatted images were created and reviewed. This CT exam was performed using one or more of the following dose reduction techniques: automated exposure control, adjustment of t he mA and/or kV according to patient size, and/or use of iterative reconstruction technique. MIP re constructed images were created and reviewed. COMPARISON: No relevant prior studies available. FINDINGS: Pulmonary arteries: No PE identified. Aorta: No acute findings. No thoracic aortic aneurysm. Lungs: Multifocal bilateral pulmonary groundglass opacities. Pleural space: No pleural effusion or pneumothorax. Heart: Cardiomegaly. No significant pericardial effusion. No evidence of RV dysfunction. Bones/joints: No acute fracture. No dislocation. Soft tissues: Unremarkable. Lymph nodes: Unremarkable. No enlarged lymph nodes. IMPRESSION: 1. No PE identified. 2. Multifocal bilateral pulmonary groundglass opacities. Imaging features can be seen with COVID-19 pneumonia, though are nonspecific and can occur with a variety of infectious and noninfectious proce sses. PneInd Electronically signed by: Brina Umanzor MD 10/20/2020 6:36 AM CDT Due to temporary technical issues with the PACS/Fluency reporting system, reports are being signed by the in house radiologists without review as a courtesy to insure prompt reporting. The interpreting radiologist is fully responsible for the content of the report.
[2020-10-20 23:22] LABS: C-Reactive Protein 71.5 mg/L (<3.00); Ferritin 629.4 ng/mL (26-388)
[2020-10-21] MEDS: ALBUTEROL 2.5 MG/3 ML NEB SOL NEB SCH ×4 (02:30→19:40)
[2020-10-21] MEDS: VITAMIN D 1000 UNIT TAB PO SCH (08:19)
[2020-10-21] MEDS: THIAMINE HCL 100 MG TABLET PO SCH (08:19)
[2020-10-21] MEDS: ZINC SULFATE 220 MG CAP PO SCH (08:19)
[2020-10-21] MEDS: FAMOTIDINE 20 MG TAB PO SCH ×2 (08:19→20:09)
--- NOTE | 2020-10-21 08:19 | P.PN ---
Subjective Date of Service: 10/20/20 Patient states he is feeling well. Denies any new complaints. He is currently on 3 L of oxygen, maintaining sats of 93%. Continue to monitor him closely. Review of Systems 10-point ROS is otherwise unremarkable Physical Examination - Vital Signs Temperature: 97.1 F Blood Pressure: 134/63 Pulse: 65 Respirations: 15 Pulse Ox (%): 91 - Physical Exam General: Alert, In no apparent distress, Oriented x3 HEENT: Atraumatic, PERRLA, EOMI Neck: Supple, JVD not distended Respiratory: Diminished, Rhonchi/gurgles Cardiovascular: Regular rate/rhythm, Normal S1 S2 Gastrointestinal: Normal bowel sounds, No tenderness Musculoskeletal: No tenderness Integumentary: No rashes Neurological: Normal speech, Normal tone, Normal affect Lymphatics: No axilla or inguinal lymphadenopathy - Studies Medications List Reviewed: Yes Assessment & Plan - Problems (Diagnosis) (1) Elevated liver function tests Current Visit: Yes Status: Acute (2) SHARON (acute kidney injury) Current Visit: Yes Status: Acute (3) Hypertension Current Visit: Yes Status: Acute (4) Pneumonia due to COVID-19 virus Current Visit: Yes Status: Acute - Plan 1. Continue with IV steroids; hold antiviral as liver enzymes elevated and unknown etiology 2. Monitor inflammatory markers 3. Repeat chest x-ray if symptoms are progressively worsening 4. O2 per protocol 5. Pulmonary consultation and gastroenterology consultation 6. Continue with albuterol inhaler therapy; also supportive care 7. Monitor LFTs 8. GI and DVT prophylaxis Discharge Plan: Home Plan to discharge in: Greater than 2 days - Advance Directives Does patient have a Living Will: No Does patient have a Durable POA for Healthcare: No - Code Status/Comfort Care Code Status Assessed: Yes Code Status: Full Code Critical Care: No Time Spent Managing PTS Care (In Minutes): 35
[2020-10-21] MEDS: METHYLPREDNISOLONE 125 MG INJ IV SCH ×2 (08:20→20:10)
[2020-10-21] MEDS: ASCORBIC ACID 500 MG TABLET PO SCH ×4 (08:20→20:09)
[2020-10-21] MEDS: APIXABAN 5 MG TABLET PO SCH ×2 (08:20→20:10)
[2020-10-21] MEDS: lisinopriL 10 MG TAB PO SCH (08:23)
[2020-10-21] MEDS: AMLODIPINE 10 MG TAB PO SCH (08:23)
[2020-10-21 12:53] LABS: Absolute Lymphocytes (CBC) 0.4 K/uL (0.7-4.9); Basophils % 0.3 % (0-1.3); Hematocrit 39.5 % (39.6-49.0); Lymphocytes % 2.7 % (15.3-44.8); MPV 8.6 fL (7.6-11.3); RBC Red Blood Cell Count 4.42 M/uL (4.33-5.43)
[2020-10-21 12:56] LABS: Bilirubin Total 0.5 mg/dL (0.2-1.0); C-Reactive Protein 51.7 mg/L (<3.00); Ferritin 553.1 ng/mL (26-388); Potassium 4.9 mmol/L (3.5-5.1); Protein, Total 7.8 g/dL (6.4-8.2)
[2020-10-21 13:23] LABS: Blood Morphology Comment NOT SEEN (NOT SEEN); Platelet Estimate ADEQ
[2020-10-21] MEDS: BENZONATATE 100 MG CAP PO PRN ×2 (16:00→23:22)
[2020-10-21] MEDS: MELATONIN 5 MG TABLET PO PRN (20:09)
[2020-10-21 23:23] LABS: Ferritin 427.6 ng/mL (26-388)
[2020-10-22] MEDS: ALBUTEROL 2.5 MG/3 ML NEB SOL NEB SCH ×2 (02:05→08:10)
[2020-10-22 04:05] LABS: Absolute Lymphocytes (CBC) 0.4 K/uL (0.7-4.9); Basophils % 0.1 % (0-1.3); Hematocrit 36.1 % (39.6-49.0); Lymphocytes % 2.9 % (15.3-44.8); MPV 8.2 fL (7.6-11.3); RBC Red Blood Cell Count 4.04 M/uL (4.33-5.43)
[2020-10-22 04:34] LABS: Albumin 2.7 g/dL (3.4-5.0); Bilirubin Total 0.5 mg/dL (0.2-1.0); C-Reactive Protein 31.6 mg/L (<3.00); Ferritin 400.1 ng/mL (26-388); Magnesium 2.6 mg/dL (1.8-2.4); Potassium 4.9 mmol/L (3.5-5.1); Protein, Total 7.1 g/dL (6.4-8.2)
--- NOTE | 2020-10-22 05:58 | P.PN ---
Date of Service: 10/21/20 Subjective Patient states he is doing better. He feels well enough to go home. Wants to be home with his children. Arrange for home oxygen prior to discharge. Unfortunately will not get to arrange this tonight. Review of Systems 10-point ROS is otherwise unremarkable Physical Examination - Vital Signs Reviewed - Physical Exam General: Alert, In no apparent distress, Oriented x3 Respiratory: Diminished, Rhonchi/gurgles Cardiovascular: Regular rate/rhythm, Normal S1 S2 Gastrointestinal: Normal bowel sounds, No tenderness Neurological: Normal speech, Normal tone, Normal affect Assessment & Plan - Problems (Diagnosis) (1) Elevated liver function tests Current Visit: Yes Status: Acute (2) SHARON (acute kidney injury) Current Visit: Yes Status: Acute (3) Hypertension Current Visit: Yes Status: Acute (4) Pneumonia due to COVID-19 virus Current Visit: Yes Status: Acute - Plan 1. Continue with IV steroids; hold antiviral as liver enzymes elevated and unknown etiology; spoke with Gastroenterology and at this time hold Consult and monitor LFTs 2. Monitor inflammatory markers 3. Repeat chest x-ray if symptoms are progressively worsening 4. O2 per protocol; arrange for home oxygen 5. appreciate consultation recommendation 6. Continue with albuterol inhaler therapy; also supportive care 7. Monitor LFTs 8. GI and DVT prophylaxis Discharge Plan: Home Plan to discharge in: Greater than 2 days - Advance Directives Does patient have a Living Will: No Does patient have a Durable POA for Healthcare: No - Code Status/Comfort Care Code Status Assessed: Yes Code Status: Full Code Critical Care: No Time Spent Managing PTS Care (In Minutes): 35
[2020-10-22] MEDS: ASCORBIC ACID 500 MG TABLET PO SCH (08:23)
[2020-10-22] MEDS: ZINC SULFATE 220 MG CAP PO SCH (08:23)
[2020-10-22] MEDS: FAMOTIDINE 20 MG TAB PO SCH (08:23)
[2020-10-22] MEDS: APIXABAN 5 MG TABLET PO SCH (08:24)
[2020-10-22] MEDS: METHYLPREDNISOLONE 125 MG INJ IV SCH (08:24)
[2020-10-22] MEDS: VITAMIN D 1000 UNIT TAB PO SCH (08:24)
[2020-10-22] MEDS: THIAMINE HCL 100 MG TABLET PO SCH (08:24)
[2020-10-22] MEDS: AMLODIPINE 10 MG TAB PO SCH (08:25)
[2020-10-22] MEDS: lisinopriL 10 MG TAB PO SCH (08:25)
[2020-10-22] MEDS: IVERMECTIN 3 MG TABLET PO SCH (09:44)
--- NOTE | 2020-10-22 09:50 | P.DS ---
Admission Date: 10/19/20 Discharge Date: 10/22/20 Primary Care Provider: none Disposition: ROUTINE DISCHARGE Discharge Condition: GOOD Reason for Admission: covid pneumonia Consultations: Pulmonary-Dr. Greer Procedures: COVID: Positive CT Scan: FINDINGS: Pulmonary arteries: No PE identified. Aorta: No acute findings. No thoracic aortic aneurysm. Lungs: Multifocal bilateral pulmonary groundglass opacities. Pleural space: No pleural effusion or pneumothorax. Heart: Cardiomegaly. No significant pericardial effusion. No evidence of RV dysfunction. Bones/joints: No acute fracture. No dislocation. Soft tissues: Unremarkable. Lymph nodes: Unremarkable. No enlarged lymph nodes. IMPRESSION: 1. No PE identified. 2. Multifocal bilateral pulmonary groundglass opacities. Imaging features can be seen with COVID-19 pneumonia, though are nonspecific and can occur with a variety of infectious and noninfectious processes. ABUS: FINDINGS: The gallbladder demonstrates questionable tiny gallstone. No large gallstones present. No pericholecystic fluid or gallbladder wall thickening. The common bile duct is normal measuring 4 mm. The liver demonstrates no findings of intrahepatic biliary dilatation. IMPRESSION: Questionable tiny gallstone. Otherwise negative study Medical Problem List: Dyspnea with hypoxia secondary to bilateral COVID-19 pneumonia Hypertension History of DVT Elevated liver function without intrahepatic or biliary dilatation, etiology may be related to COVID-19 Brief History of Present Illness: 50 yo -[place] male with hypertension and h/o DVT here after COVID+ diagnosis on 10/12, now with increased SOB, cough and fatigue for the past 3 days. O2 sats 86% on room air, now improved on nasal cannula. He reports chills, night sweats, pleuritic pain, CEDEÑO, nausea and diarrhea. He recently took azithromycin and amoxicillin for an ear infection. He says he has been taking acetaminophen syrup every 2 hours for symptom relieve. AST 352. ALT 530. D dimer 1457. Procal 0.21. CRP 152. Ferritin 970. BUN 27. Cr 1.54. GFR 59. Glu 127. Patient was admitted for further evaluation and treatment. Hospital Course: Patient presented with dyspnea/hypoxia related to bilateral COVID-[address] scan showed no pulmonary embolism. Patient was admitted for treatment. Patient improved. Patient still requiring oxygen at discharge. At discharge home oxygen will be arranged. Currently on 4 L per nasal cannula. Patient will continue with incentive spirometer. At discharge patient will continue with prednisone 20 mg 1 pill twice daily for 7 days and 1 p.o. once daily for 7 days. The patient will be provided Tessalon Perles 100 mg 3 times a day as needed for cough and albuterol inhaler 2 puffs 3 times a day as needed for shortness of breath. The patient will continue with supplementation including vitamin C 500 mg 3 times a day, vitamin D 2000 units daily, thiamine 200 mg daily, and zinc 220 mg daily. The patient will also continue with Eliquis 5 mg 1 pill twice daily for DVT prophylaxis especially with his COVID-19 diagnosis. Recommend to continue proning, facemask use, social distancing, and handwashing. Patient will continue with CDC guidelines on isolation recommendation. Recommend follow-up with pulmonology in 1 week to follow-up his hospitalization. Patient will continue with pulmonology recommendations. Patient needs to stop his care with a local physician. A list of PCPs in the area will be provided. Patient with hypertension. At discharge patient will continue with his medications including Norvasc 10 mg daily and lisinopril 10 mg daily. Recommend to maintain blood pressure less than 130/80. Further adjustment can be done by his PCP. Patient had elevated liver function. Ultrasound shows no evidence of biliary dilatation or intrahepatic dilatation. Hepatitis panel pending at discharge. This can be followed up with his PCP. This may be related to his COVID-19 diagnosis. Other considerations is his recent use of Tylenol. Vital Signs/Physical Exam: Temp Pulse Resp BP Pulse Ox 97.5 F 64 24 H 120/64 91 10/22/20 08:00 10/22/20 08:25 10/22/20 08:00 10/22/20 08:25 10/22/20 08:00 General: Alert, In no apparent distress, Oriented x3, Cooperative HEENT: Atraumatic Neck: Supple Respiratory: Clear to auscultation bilaterally, Other (Currently on 4 L per nasal cannula. Ambulating appropriately without significant shortness of breath) Cardiovascular: Normal pulses, Regular rate/rhythm Gastrointestinal: Normal bowel sounds, No tenderness, No masses, No rebound, No guarding Musculoskeletal: No erythema, No tenderness, No warmth Integumentary: No tenderness/swelling Neurological: Normal speech, Normal strength at 5/5 x4 extr, Normal tone, Normal affect Laboratory Data at Discharge: WBC 14.80 K/uL (4.3-10.9) H 10/22/20 03:45 Hgb 11.8 g/dL (13.6-17.9) L 10/22/20 03:45 Hct 36.1 % (39.6-49.0) L 10/22/20 03:45 Plt Count 416 K/uL (152-406) H 10/22/20 03:45 PT 13.4 SECONDS (9.5-12.5) H 10/19/20 18:15 INR 1.16 10/19/20 18:15 Sodium 137 mmol/L (136-145) 10/22/20 03:45 Potassium 4.9 mmol/L (3.5-5.1) 10/22/20 03:45 BUN 31 mg/dL (7-18) H 10/22/20 03:45 Creatinine 1.29 mg/dL (0.55-1.3) 10/22/20 03:45 Glucose 125 mg/dL (74-106) H 10/22/20 03:45 Phosphorus 3.4 mg/dL (2.5-4.9) 10/20/20 03:31 Magnesium 2.6 mg/dL (1.8-2.4) H D 10/22/20 03:45 Total Bilirubin 0.5 mg/dL (0.2-1.0) 10/22/20 03:45 AST 85 U/L (15-37) H 10/22/20 03:45 ALT 368 U/L (12-78) H* 10/22/20 03:45 Alkaline Phosphatase 77 U/L (45-117) 10/22/20 03:45 Triglycerides 197 mg/dL (<150) H 10/20/20 03:31 Cholesterol 229 mg/dL (<200) H 10/20/20 03:31 HDL Cholesterol 30 mg/dL (40-60) L 10/20/20 03:31 Cholesterol/HDL Ratio 7.63 10/20/20 03:31 Home Medications: Butalb/Acetaminophen/Caffeine [Cktnot-Rxtgzdqu-Cyvx 50-300-40] 1 each PO Q4H PRN 10/20/20 Lisinopril [Zestril] 10 mg PO DAILY 10/20/20 Albuterol Inhaler [Ventolin Inhaler*] 2 puff IH TID PRN #1 hfa.aer.ad 10/22/20 Amlodipine [Norvasc*] 10 mg PO DAILY #30 tab 10/22/20 Apixaban [Eliquis] 5 mg PO BID #60 tablet 10/22/20 Ascorbic Acid [Vitamin C*] 500 mg PO TID #90 tablet 10/22/20 Benzonatate [Tessalon Perle*] 100 mg PO TID PRN #15 cap 10/22/20 Cholecalciferol (Vitamin D3) [Vitamin D 1000 Iu Tab*] 2,000 unit PO DAILY #60 tab 10/22/20 Thiamine HCl [Vitamin B-1*] 200 mg PO DAILY #60 tablet 10/22/20 Zinc Sulfate [Zinc Sulfate*] 220 mg PO DAILY #30 cap 10/22/20 predniSONE [Prednisone] 20 mg PO SEECOM #21 10/22/20 New Medications: Apixaban [Eliquis] 5 mg PO BID #60 tablet Amlodipine [Norvasc*] 10 mg PO DAILY #30 tab predniSONE [Prednisone] 20 mg PO SEECOM #21 Benzonatate [Tessalon Perle*] 100 mg PO TID PRN #15 cap PRN Reason: Cough Albuterol Inhaler [Ventolin Inhaler*] 2 puff IH TID PRN #1 hfa.aer.ad PRN Reason: Shortness Of Breath Thiamine HCl [Vitamin B-1*] 200 mg PO DAILY #60 tablet Ascorbic Acid [Vitamin C*] 500 mg PO TID #90 tablet Cholecalciferol (Vitamin D3) [Vitamin D 1000 Iu Tab*] 2,000 unit PO DAILY #60 tab Zinc Sulfate [Zinc Sulfate*] 220 mg PO DAILY #30 cap Physician Discharge Instructions: Patient presented with dyspnea/hypoxia related to bilateral COVID-[address] scan showed no pulmonary embolism. Patient was admitted for treatment. Patient improved. Patient still requiring oxygen at discharge. At discharge home oxygen will be arranged. Currently on 4 L per nasal cannula. Patient will continue with incentive spirometer. At discharge patient will continue with prednisone 20 mg 1 pill twice daily for 7 days and 1 p.o. once daily for 7 days. The patient will be provided Tessalon Perles 100 mg 3 times a day as needed for cough and albuterol inhaler 2 puffs 3 times a day as needed for shortness of breath. The patient will continue with supplementation including vitamin C 500 mg 3 times a day, vitamin D 2000 units daily, thiamine 200 mg daily, and zinc 220 mg daily. The patient will also continue with Eliquis 5 mg 1 pill twice daily for DVT prophylaxis especially with his COVID-19 diagnosis. Recommend to continue proning, facemask use, social distancing, and handwashing. Patient will continue with CDC guidelines on isolation recommendation. Recommend follow-up with pulmonology in 1 week to follow-up his hospitalization. Patient will continue with pulmonology recommendations. Patient needs to stop his care with a local physician. A list of PCPs in the area will be provided. Patient with hypertension. At discharge patient will continue with his medications including Norvasc 10 mg daily and lisinopril 10 mg daily. Recommend to maintain blood pressure less than 130/80. Further adjustment can be done by his PCP. Patient had elevated liver function. Ultrasound shows no evidence of biliary dilatation or intrahepatic dilatation. Hepatitis panel pending at discharge. T his can be followed up with his PCP. This may be related to his COVID-19 diagnosis. Other considerations is his recent use of Tylenol. Diet: AHA Activity: Ad maci Followup: RICK CABRERA [Primary Care Provider] - Time spent managing pt's care (in minutes): 55
[2020-10-22] MEDS: BENZONATATE 100 MG CAP PO PRN (10:41)
[2020-10-22 11:59] VITALS: BP 139/72; TEMP 97.2
[2020-10-22 13:06] VITALS: O2SAT 92
[2020-10-24 06:55] LABS: Hepatitis C Virus RNA (PCR)log <1.18 log IU/mL
[2020-10-24 19:02] LABS: HBsAG Nonreactive (Nonreactive)
== END 2020-10-22 13:18 | disposition home or self-care (01) | DRG 177 ==
LOC: ER 16:17 → ERHOLD 21:25 → 4TH 21:58
PROVIDERS: ADMIT Hospitalist; ATTEND Family Medicine
DX: U07.1 COVID-19 (principal); J12.82 Pneumonia due to coronavirus disease 2019; N17.9 Acute kidney failure, unspecified; I10 Essential (primary) hypertension; R19.7 Diarrhea, unspecified; R79.89 Other specified abnormal findings of blood chemistry; R79.1 Abnormal coagulation profile; Z86.718 Personal history of other venous thrombosis and embolism; Z79.52 Long term (current) use of systemic steroids; Z79.899 Other long term (current) drug therapy; Z79.01 Long term (current) use of anticoagulants
CPT/HCPCS: 36415; 71045; 71275; 76705; 80048; 80053; 80061; 80074; 80076; 80329; 81003; 81015; 82728; 83036; 83605; 83735; 83880; 84100; 84145; 84484; 85025; 85379; 85610; 86140; 86708; 87040; 87520; 87522; 93005; 94760; 96365; 96366; 96375; 99285; J1100; J2270; J2405; J2930; J3475; J7030; Q9967

== ENCOUNTER 2021-05-01 00:19 | Emergency (ER) | payer SELFPAY ==
[2021-05-01] MEDS ORDERED: HYDROCODONE/APAP 5/325 MG TAB ONE (00:55)
[2021-05-01] MEDS ORDERED: AMLODIPINE 5 MG TAB ONE (02:18)
[2021-05-01] MEDS ORDERED: lisinopriL 10 MG TAB ONE (02:18)
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
[2021-05-01 03:45] VITALS: O2SAT 99
[2021-05-01 03:46] VITALS: BP 184/105; TEMP 98
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
--- OUTSIDE RECORDS SUMMARY | 2021-05-11 08:38 | XMS REPORT | Continuity of Care Document ---
:1970 Author Organization [facility] t Address [address] [place] [address] Care Team Providers Name Role Phone Kathi Rick MD Attending Clinician Problems This patient has no known problems. Allergies, Adverse Reactions, Alerts Allergy Allergy Status Severity Reaction(s) Onset Inactive Treating Comm ents Source Name Type Date Date Clinician NO KNOWN Drug Active [facility] ALLERGIE Class [facility] Medications This patient has no known medications. Procedures This patient has no known procedures. Encounters Start End Encounter Admission Attending Care Care Encounter Source Date/Time Date/Time Type Type Clinicians Facility Department ID 2020-09-29 2020-09-29 Emergency [facility] [id number] 03:20:00 04:38:00 Marlin Manrique [id number] [place] [id number] [place] [id number] 2020-09-29 2020-09-29 Emergency X [facility] ERT [id number] [facility] 03:03:00 03:03:00 [facility] Results This patient has no known results.
== END 2021-05-01 03:31 | disposition home or self-care (01) ==
LOC: ER 00:19
DX: S81.802A Unspecified open wound, left lower leg, initial encounter (principal); I10 Essential (primary) hypertension; Z91.14 Patient's other noncompliance with medication regimen; V20.4XXA Motorcycle driver injured in collision with pedestrian or animal in traffic accident, initial encounter
CPT/HCPCS: 99284